=== PATIENT | female | born 1965 | race Caucasian/White ===

== ENCOUNTER 2022-04-29 11:37 | Emergency (ER) | payer MEDICAID ==
[~2022-04-29] VITALS: Ht 175.3 cm; Wt 90.0 kg
[2022-04-29 12:18] VITALS: BP 158/87
[2022-04-29] MEDS ORDERED: LIDOCAINE 2%/EPI 1:100,000 inj. Multi-dose 20 ML VIAL IJ ONE (14:55)
[2022-04-29] MEDS ORDERED: bacitracin 15gm ointment TP ONE (14:55)
[2022-04-29] MEDS ORDERED: TETanus/Pertussis (Acell)/Diphther VAC/PF (Tdap-Adult) 0.5ml syringe IMVAC ONE (14:55)
[2022-04-29] MEDS ORDERED: amox tr/potassium clavulanate 875/125mg TAB PO ONE (14:55)
[2022-04-29] MEDS ORDERED: HYDROcodone/acetaminophen 10/325mg tab PO ONE (14:55)
[2022-04-29] MEDS ORDERED: AMOX-117 PO (15:03)
== END 2022-04-29 16:32 | disposition home or self-care (01) ==
LOC: ER 11:37
DX: S01.511A Laceration without foreign body of lip, initial encounter (principal); W54.0XXA Bitten by dog, initial encounter; Y93.89 Activity, other specified; Y92.89 Other specified places as the place of occurrence of the external cause; Y99.8 Other external cause status
CPT/HCPCS: 40650; 90471; 90715; 99284; A6449

== ENCOUNTER 2022-05-16 12:33 | Emergency (ER) | payer MEDICAID ==
[~2022-05-16] VITALS: Ht 175.3 cm; Wt 95.5 kg
[2022-05-16 12:39] VITALS: BP 153/81
--- NOTE | 2022-05-16 15:16 | NUR ---
11 sutures removed, intact with knot. Tenderness with removal, no pain at time of discharge.
== END 2022-05-16 15:16 | disposition home or self-care (01) ==
LOC: ER 12:34
DX: S01.511D Laceration without foreign body of lip, subsequent encounter (principal); Z48.00 Encounter for change or removal of nonsurgical wound dressing; W54.0XXD Bitten by dog, subsequent encounter
CPT/HCPCS: 99281; A6449